=== PATIENT | female | born 1990 | race Caucasian/White ===

== ENCOUNTER 2022-01-21 16:41 | Emergency (ER) | payer OTHER ==
[~2022-01-21] VITALS: Ht 167.6 cm; Wt 92.2 kg
[2022-01-21 16:44] VITALS: BP 122/71
--- NOTE | 2022-01-21 17:00 | NUR ---
PT AMBULATED TO BED 7
--- NOTE | 2022-01-21 17:34 | NUR ---
Female Alternative Medicine Practitioner accompanied female patient for pubic area Exam.
--- NOTE | 2022-01-21 17:35 | NUR ---
31YO FEMALE PT C/O PAIN ON HER RIGHT LABIA MAJORA. PT STATES RECENTLY CHANGING SHAVING CREAM AND NOTICING IRRITATION. PT WAS SEEN 4 DAYS AGO AND TOLD SHE HAD A LOCAL BACTERIAL INFECTION AND GIVEN ANTIBIOTIC KEFLEX AND ANTIBIOTIC OITMENT. PT PRESENTS WITH CELLULITIS AT SITE, TENDER TO TOUCH AND WITH CLEAR DRAINAGE. PT AAOX4, AT BEDSIDE. ALL NEEDS MET AT THIS TIME NKA HX: ANXIETY, OVARIAN CYST, CHRONIC BACK PAIN, GERD
--- NOTE | 2022-01-21 17:46 | NUR ---
Patient discharged with v/s stable. Written and verbal after care instructions given and explained. Patient verbalized understanding. Ambulatory with steady gait. All questions addressed prior to discharge. Advised to follow up with PMD.
--- NOTE | 2022-01-21 17:47 | NUR ---
Chart checked and completed. The patient's care was reviewed and supervised by Joycelyn Kumar RN.
== END 2022-01-21 17:46 | disposition home or self-care (01) ==
LOC: MED 16:41
DX: L73.9 Follicular disorder, unspecified (principal)
CPT/HCPCS: 99282

== ENCOUNTER 2022-01-28 17:07 | Emergency (ER) | payer OTHER ==
[~2022-01-28] VITALS: Ht 167.6 cm; Wt 91.6 kg
[2022-01-28 17:22] VITALS: BP 135/86
--- NOTE | 2022-01-28 17:27 | NUR ---
Patient ambulated to bed 6.
--- NOTE | 2022-01-28 17:30 | NUR ---
31YO FEMALE PT C/O CONSTANT BILATERAL ITCHYNESS ON LABIA MAJORA X1 DAY . PT WAS SEEN 2 WEEKS AGO TO CELLULITS AND PAIN DUE TO SHAVING. PT DENIES PAIN AT THIS TIME. . PT PRESENTS REDDENED AND WITH MILD SWELLING BILATERALLY AT SITE. NO VISIBLE SIGN OF CELLULITIS. PT STATES TAKING ALL ANTIBIOTICS DIRECTED , TODAY BEING THE LAST DOSE. PT AAOX4, VITALS WITHIN NORMAL RANGE. ALL PT NEEDS MET AT THIS TIME.
--- NOTE | 2022-01-28 19:18 | NUR ---
REPORT GIVEN TO COLT LONDONO. TRANSFER OF CARE AT THIS TIME
[2022-01-28 19:20] VITALS: BP 115/67
--- NOTE | 2022-01-28 19:38 | NUR ---
The patient's care was reviewed and supervised by Amber Lechuga, RN, RN.
== END 2022-01-28 19:20 | disposition home or self-care (01) ==
LOC: MED 17:07
DX: N76.2 Acute vulvitis (principal); K21.9 Gastro-esophageal reflux disease without esophagitis; F41.9 Anxiety disorder, unspecified; Z98.890 Other specified postprocedural states
CPT/HCPCS: 99282

== ENCOUNTER 2022-04-21 21:21 | Emergency (ER) | payer OTHER ==
[~2022-04-21] VITALS: Ht 167.6 cm; Wt 90.9 kg
[2022-04-21 21:49] VITALS: BP 118/76
--- NOTE | 2022-04-21 21:52 | NUR ---
PT TAKEN TO LOBBY
--- NOTE | 2022-04-21 23:28 | NUR ---
RECEIVED CALL FROM ADMITTING STATING PT LEFT FACILITY AT THIS TIME. PATIENT LEFT WITHOUT BEING SEEN BY . NO FURTHER CARE PROVIDED FOR PATIENT.
== END 2022-04-21 23:28 | disposition left against medical advice (07) ==
LOC: MED 21:21
DX: H92.01 Otalgia, right ear (principal); Z53.21 Procedure and treatment not carried out due to patient leaving prior to being seen by health care provider

== ENCOUNTER 2022-05-12 08:15 | Emergency (ER) | payer OTHER ==
[~2022-05-12] VITALS: Ht 172.7 cm; Wt 74.8 kg
[2022-05-12 08:19] VITALS: BP 119/74
--- NOTE | 2022-05-12 08:40 | NUR ---
31 y/o female, pt presents with right eye pain 4 days and states swelling started today with increased pain and blurry vision. pt was seen at urgent care and given eye drops to help with conjunctivitis. pt a&ox4, ambulates with steady gait. pt normally wears glasses for near sighted vision. pmh: gerd, ovarian cyst, chronic back pain nka
--- NOTE | 2022-05-12 09:20 | NUR ---
pt states she wears glasses normally for near sighted deficit. both: 20/40 right: 20/70 (affected eye) left: 20/30
[2022-05-12] MEDS ORDERED: ERYT5OIN58 OP (09:30)
[2022-05-12 09:51] VITALS: BP 119/74
--- NOTE | 2022-05-12 09:52 | NUR ---
Patient discharged with v/s stable. Written and verbal after care instructions given and explained. Patient alert, oriented and verbalized understanding of instructions. Ambulatory with steady gait. All questions addressed prior to discharge. ID band removed. Patient advised to follow up with PMD. Rx of erythromycin (sent) given. Patient educated on indication of medication including possible reaction and side effects. Opportunity to ask questions provided and answered.
== END 2022-05-12 09:52 | disposition home or self-care (01) ==
LOC: MED 08:15
DX: H10.31 Unspecified acute conjunctivitis, right eye (principal)
CPT/HCPCS: 99283